=== PATIENT | female | born 2000 ===

== ENCOUNTER 2023-06-01 11:20 | Emergency (ER) | payer OTHER, SELFPAY ==
[2023-06-01 11:37] VITALS: BP 122/86; PULSE 90; RESP 18; TEMP 36.7; O2SAT 99; BMI 20.4
--- NOTE | 2023-06-01 11:43 | ED.GENADULT ---
HPI - General Adult General Chief complaint: Eye Problems Stated complaint: Eye infection Time Seen by Provider: 06/01/23 11:43 History of Present Illness HPI narrative: 22-year-old female presenting the ER today with concern for a left eye infection. She is a generally healthy young lady. She is allergic to penicillin. No other regular medications. She does not were glasses or contacts she does often wear mascara. About 3 or 4 days ago on Saturday or she began to develop a little bit of swelling on her left upper eyelid. It has gotten progressively swollen and more painful for the past couple of days. It is draining a small amount of purulent fluid. It is now getting swollen enough that her upper eyelid is beginning to obscure on the upper portion of her visual field. It is similar to when she has had styes in the past but is larger than previously. She has not immunosuppressed her diabetic. Related Data Home Medications Medication Instructions Recorded Confirmed No Known Home Medications 06/01/23 06/01/23 Allergies Allergy/AdvReac Type Severity Reaction Status Date / Time Penicillins Allergy Verified 06/01/23 11:39 Exam Narrative: Exam Narrative: Constitutional: Appears well-developed and well-nourished. Alert. Conversant. Non toxic. HENT: Head: Atraumatic. Nose: Nose normal. Mouth/Throat: Oral mucosa is clear and moist. no trismus. Pharynx normal. Tonsils symmetric. No tonsillar enlargement, erythema, or exudate. Eyes: Bulbar Conjunctivae normal. EOM normal. Pupils equal, round, and reactive to light. No scleral icterus. She has significant erythema and swelling of the left upper eyelid with a swollen nodule on the lateral half of her lid suggestive of a stye. Left lower lid normal. The redness does not extend around her entire periorbital region Right upper and lower lids normal. Visual acuity (R): 20/25, (L): 20/30 PERRLA, EOMI. No exophthalmos or enophthalmos. Slit Lamp Exam: Lids: No foreign body noted in detailed exam upper and lower lids/margins there does appear to be a clogged meibomian gland on the left upper eyelid corresponding to the stye. Anterior Chamber: No cells or flare, No hyphema. No hypopyon. Cornea: No foreign body. Neck: Normal range of motion. Neck supple. No tracheal deviation present. Cardiovascular: Normal rate, regular rhythm. Pulmonary/Chest: Effort normal. No stridor. No respiratory distress. Musculoskeletal: RUE: Normal range of motion. No tenderness. No deformity LUE: Normal range of motion. No tenderness. No deformity RLE: Normal range of motion. No edema. No tenderness. No deformity LLE: Normal range of motion. No edema. No tenderness. No deformity Neurological: Alert and oriented to person, place, and time. Normal strength. CN II-VII intact. No sensory deficit. GCS eye subscore is 4. GCS verbal subscore is 5. GCS motor subscore is 6. Normal coordination Skin: Skin is warm and dry. No rash noted. No pallor. Normal capillary refill. Psychiatric: Normal mood. Normal affect. Const: Vital Signs, click to edit/add: Vital Signs - 24 hr 06/01/23 11:37 Temperature 98.1 F Pulse Rate [Right Pulse Oximeter] 90 Respiratory Rate 18 Blood Pressure [Ri ght Upper Arm] 122/86 Pulse Oximetry 99 Oxygen Delivery Me thod Room Air Course Vital Signs Vital signs: Initial Vital Signs Temperature 98.1 F 06/01/23 11:37 Temperature Source Temporal Artery Scan 06/01/23 11:37 Pulse Rate 90 06/01/23 11:37 Respiratory Rate 18 06/01/23 11:37 Blood Pressure 122/86 06/01/23 11:37 Blood Pressure Mean 98 06/01/23 11:37 Blood Pressure Position Sitting 06/01/23 11:37 Pulse Oximetry 99 06/01/23 11:37 Oxygen Delivery Method Room Air 06/01/23 11:37 Vital Signs Temperature 98.1 F 06/01/23 11:37 Pulse Rate 90 06/01/23 11:37 Respiratory Rate 18 06/01/23 11:37 Blood Pressure 122/86 06/01/23 11:37 Pulse Oximetry 99 06/01/23 11:37 Oxygen Delivery Method Room Air 06/01/23 11:37 Temperature 98.1 F 06/01/23 11:37 Pulse Rate 90 06/01/23 11:37 Respiratory Rate 18 06/01/23 11:37 Blood Pressure 122/86 06/01/23 11:37 Pulse Oximetry 99 06/01/23 11:37 Oxygen Delivery Method Room Air 06/01/23 11:37 Medical Decision Making MDM Narrative Medical decision making narrative: This patient presents for evaluation of swollen red itchy left upper eyelid. Exam is consistent with stye probably with an associated blepharitis.. A broad differential diagnosis was considered including bacterial conjunctivitis, viral conjunctivitis, foreign body, corneal abrasion, chemical vs allergic conjunctivitis, corneal ulcer, HSV, herpes zoster of V1 or zoster opthalmicus, periorbital cellulitis, orbital cellulitis, among others. No red flag symptoms to suggest any of the above worrisome etiologies. Signs and symptoms consistent with a stye. Probably superimposed bacterial infection as well. Will start antibiotics (gentamicin eyedrops), continue warm compresses every 4 hours during the day. Close follow-up of eye physician with [facility] if not improving by saturday. Precautions for return to the ER need for follow-up reviewed. Questions answered. Discharge Plan Discharge Clinical Impression: Stye Patient Disposition: Home, Self-Care Condition: Stable Instructions: Stye (ED) Additional Instructions: As we discussed, continue to do warm compresses every 4 hours and use the antibiotic toxic every 4 hours to help treat the infection. If your eye gets worse or you have any problems, come back to the ER or call the eye doctors right away. If your eye is not dramatically improved by Saturday, please follow-up with [facility] you can call [phone] on Saturday morning and ask for an ER follow-up appointment. Remember, if you have worsening problems or any other trouble, come back to the ER right away. Use the gentamicin eyedrops 2 drops into her left eye every 4 hours while you are awake for the next 5 days. Prescriptions: No Action No Known Home Medications Follow Up/Referrals: Ailin Maria MD [Primary Care Provider] - Stand Alone Forms: [facility] Info Instructions
== END 2023-06-01 12:37 | disposition home or self-care (01) ==
LOC: ED 12:33
PROVIDERS: Emergency Provider Emergency Medicine
DX: H00.014 Hordeolum externum left upper eyelid (principal)
CPT/HCPCS: 99282; 99283; A9270